=== PATIENT | male | born 1985 | race Caucasian/White ===

== ENCOUNTER 2019-07-03 15:57 | Emergency (ER) | payer BC ==
[2019-07-03] MEDS ORDERED: Diphtheria,Pertussis(Acell),Tetanus Vaccine 0.5 ML Syringe IM ONE (16:39)
[2019-07-03] MEDS ORDERED: Lidocaine 1% 50 ML MDV INJECT ONE (17:28)
--- NOTE | 2019-07-03 18:36 | EDM.PDOC ---
ED HPI GENERAL MEDICAL PROBLEM - General Chief Complaint: Laceration Stated Complaint: FINGER LAC Time Seen by Provider: 07/03/19 16:20 Source of Information: Reports: Patient History Limitations: Reports: No Limitations - History of Present Illness INITIAL COMMENTS - FREE TEXT/NARRATIVE: Orlando is a 34 year old male who presents today with a laceration to the left hand second finger. Injury occurred prior to arrival in the ER. He had just turned off his chain saw, it was still rotating, and he cut his left hand 2nd finger. Bleeding controlled upon arrival to the ER. Reports no numbness or tingling. No decreased ROM. Unsure of last tetanus. Onset: Today, Sudden Location: Reports: Upper Extremity, Left Left Middle Finger-Index Pain Score (Numeric/FACES): 6 - Related Data Allergies Allergy/AdvReac Type Severity Reaction Status Date / Time No Known Allergies Allergy Verified 07/03/19 16:19 Home Meds: Home Meds Cephalexin [Keflex] 500 mg PO BID #20 capsule 07/03/19 [Rx] Varenicline Tartrate [Chantix] 1 mg PO DAILY 07/03/19 [History] Past Medical History HEENT History: Reports: None Cardiovascular History: Reports: None Respiratory History: Reports: None Gastrointestinal History: Reports: None Genitourinary History: Reports: None Musculoskeletal History: Reports: None Neurological History: Reports: None Psychiatric History: Reports: None Endocrine/Metabolic History: Reports: None Hematologic History: Reports: None Immunologic History: Reports: None Oncologic (Cancer) History: Reports: None Dermatologic History: Reports: None Social & Family History - Tobacco Use Smoking Status *Q: Former Smoker Used Tobacco, but Quit: Yes Month/Year Tobacco Last Used: 07/03 - Caffeine Use Caffeine Use: Reports: Coffee - Recreational Drug Use Recreational Drug Use: No ED ROS GENERAL - Review of Systems Review Of Systems: See Below Skin: Reports: Wound (left second finger ) Neurological: Denies: Numbness, Tingling ED EXAM, SKIN/RASH Exam: See Below Exam Limited By: No Limitations General Appearance: Alert, WD/WN, No Apparent Distress Respiratory/Chest: No Respiratory Distress Cardiovascular: Normal Peripheral Pulses, Regular Rate, Rhythm Peripheral Pulses: 3+: Radial (R) Neurological: Alert, Oriented, Normal Cognition, No Motor/Sensory Deficits ( reports good sensation to light touch to the left 2nd finger tip, good ROm of the 2nd finger both passive and active) Skin: Warm, Dry, Normal Color, Wound/Incision (2 lacerations to the left hand 2nd finger over the dorsal middle phalnex and extending over the PIP, lacerations are approximately 2.5cm each, irregular, and dirty) ED SKIN PROCEDURES - Laceration/Wound Repair Left Digit - 2nd (Index) Appearance: Subcutaneous, Irregular, Moderately Contaminated Distal NVT: Neuro & Vascular Intact, No Tendon Injury Anesthetic Type: Digital Local Anesthesia - Lidocaine (Xylocaine): 1% Plain Local Anesthetic Volume: 4cc Skin Prep: Chlorhexidine (Hibiciens), Isopropyl Alcohol (Alcohol), Saline, Sterile Drape Exploration/Debridement/Repair: No Foreign Material Found Closed with: Sutures, Dermabond Lac/Wound length In cm: 2.5 Suture Size: 4-0 # of Sutures: 7 Suture Type: Silk, Interrupted, Simple Sterile Dressing Applied: Nurse Tetanus Status Addressed: Yes Complications: No Course - Vital Signs Last Recorded V/S: Last Vital Signs Temp 97.8 F 07/03/19 16:18 Pulse 96 07/03/19 16:18 Resp 22 H 07/03/19 16:18 BP 157/96 H 07/03/19 16:18 Pulse Ox 99 07/03/19 16:18 - Orders/Labs/Meds Orders: Active Orders 24 hr Category Date Time Status Vaccines to be Administered [RC] PER UNIT ROUTINE Care 07/03/19 16:40 Ordered Fingers Second Digit Lt F1 [CR] Stat Exams 07/03/19 16:39 Ordered Meds: Medications Discontinued Medications Generic Name Dose Route Start Last Admin Trade Name Riccardoq PRN Reason Stop Dose Admin Diphtheria/Tetanus/Acell Pertussis 0.5 ml 07/03/19 16:39 07/03/19 17:27 Adacel IM 07/03/19 16:40 0.5 ml .ONCE ONE Administration Lidocaine HCl 50 ml 07/03/19 17:28 07/03/19 18:35 Xylocaine 1% INJECT 07/03/19 17:29 50 ml ONETIME ONE Administration - Radiology Interpretation Free Text/Narrative:: xray of the left hand 2nd finger shows soft tissue injury. No fracture or dislocation. Formal radiology read pending. - Re-Assessments/Exams Free Text/Narrative Re-Assessment/Exam: 07/03/19 18:33 the lacerations were repaired with 7 sutures total and Dermabond for the more superficial aspect. Patient tolerated well. Good anesthesia with digital block. Placed in a finger splint. Xray reviewed with the patient. Tetanus updated. Placed on cephalexin as this was a dirty/contaminated wound. Discharge instructions as documented. Departure - Departure Time of Disposition: 18:34 Disposition: Home, Self-Care 01 Condition: Fair Clinical Impression: Laceration - Discharge Information *PRESCRIPTION DRUG MONITORING PROGRAM REVIEWED*: No *COPY OF PRESCRIPTION DRUG MONITORING REPORT IN PATIENT ANNETTA: No Prescriptions: Cephalexin [Keflex] 500 mg PO BID #20 capsule Instructions: Laceration Care, Adult, [id number] Referrals: PCP,None [Primary Care Provider] - Forms: ED Department Discharge Additional Instructions: Cephalexin bid x 10 days. take with food. wash the wound with gentle soap and water twice a day. Apply bandage and use the splint. Have the sutures removed in 10 days your PCP or the [facility] can do this for you. Call [phone] to schedule with a provider there. OTC tylenol or motrin as needed for discomfort. Please return to the ER should you symptoms change or worsen. Sepsis Event Note - Evaluation Sepsis Screening Result: No Definite Risk - Focused Exam Vital Signs: Vital Signs Temp Pulse Resp BP Pulse Ox 07/03/19 16:18 97.8 F 96 22 H 157/96 H 99 Date Exam was Performed: 07/03/19 Time Exam was Performed: 19:36 - My Orders Last 24 Hours: My Active Orders 07/03/19 16:39 Fingers Second Digit Lt F1 [CR] Stat 07/03/19 16:40 Vaccines to be Administered [RC] PER UNIT ROUTINE - Assessment/Plan Last 24 Hours: My Active Orders 07/03/19 16:39 Fingers Second Digit Lt F1 [CR] Stat 07/03/19 16:40 Vaccines to be Administered [RC] PER UNIT ROUTINE
--- NOTE | 2019-07-04 07:42 | CR ---
Left 2nd finger: 3 views centered to the left 2nd finger were obtained. Soft tissue injury is identified. Joint spaces are preserved. No fracture, dislocation or other bony abnormality is identified. Impression: 1. Soft tissue injury. 2. No acute bony abnormality is appreciated. Diagnostic code #2 This report was dictated in MDT
== END 2019-07-03 18:57 | disposition home or self-care (01) ==
LOC: JD.ED 15:57
DX: S61.211A Laceration without foreign body of left index finger without damage to nail, initial encounter (principal); Z23 Encounter for immunization; Z87.891 Personal history of nicotine dependence; W29.3XXA Contact with powered garden and outdoor hand tools and machinery, initial encounter
CPT/HCPCS: 12001; 73140; 90471; 90715; 99283; J2001

== ENCOUNTER 2022-01-21 07:57 | Emergency (ER) | payer BC ==
[2022-01-21] MEDS ORDERED: Ketorolac 30 MG/ML SDV IVPUSH ONE (08:18)
[2022-01-21] MEDS ORDERED: Sodium Chloride 0.9% 1,000 ML IV ONE ×2 (08:23→09:54)
[2022-01-21] MEDS ORDERED: Ondansetron 4 MG/2 ML SDV IVPUSH ONE (08:59)
[2022-01-21] MEDS ORDERED: Iopamidol 612 MG/ML 100 ML Bottle IVPUSH ONE (09:03)
[2022-01-21] MEDS ORDERED: Sodium Chloride 0.9% 10 ML Syringe FLUSH ONE (09:03)
[2022-01-21] MEDS ORDERED: Morphine 4 MG/ML Syringe IVPUSH ONE (10:43)
== END 2022-01-21 11:16 | disposition home or self-care (01) ==
LOC: JD.ED 07:57
DX: N13.9 Obstructive and reflux uropathy, unspecified (principal); Z79.899 Other long term (current) drug therapy
CPT/HCPCS: 36415; 74177; 80053; 81001; 83605; 83690; 85025; 96361; 96374; 96375; 99284; J1885; J2270; J2405; J3490; J7030; Q9967; 99283